=== PATIENT | male | born 1950 | race American Indian/Alaskan Native ===

== ENCOUNTER 2016-12-29 01:04 | Emergency (ER) | payer MEDICARE ==
[2016-12-29 03:01] LABS: Eosinophils % (Auto) 1.6 % (0.0-4.3); Hematocrit 38.3 % (35.5-45.6); Hemoglobin 12.8 gm/dl (11.8-15.2); Mean Corpuscular HGB Conc 33 % (32-34); Mean Corpuscular Hemoglobin 30 pg (28-32); Mean Corpuscular Volume 89 fl (84-94); Platelet Count 364 K/mm3 (140-440); Red Blood Count 4.32 M/mm3 (3.65-5.03); Red Cell Distribution Width 14.2 % (13.2-15.2); White Blood Count 6.4 K/mm3 (4.5-11.0)
[2016-12-29 04:18] LABS: Blood Urea Nitrogen 6 mg/dL (9-20); Calcium 8.9 mg/dL (8.4-10.2); Carbon Dioxide 30 mmol/L (22-30); Chloride 91.1 mmol/L (98-107); Glucose 206 mg/dL (75-100); Potassium 3.1 mmol/L (3.6-5.0); Sodium 137 mmol/L (137-145)
[2016-12-29 04:21] LABS: Anion Gap 19 mmol/L
[2016-12-29] MEDS ORDERED: K-DUR PO ONE (08:08)
--- NOTE | 2016-12-29 08:27 | Emergency Department Report ---
HPI - General Chief Complaint: Psych Time Seen by Provider: 12/29/16 08:08 - HPI HPI: This is a 66-year-old Afro-[place] male who presents to the emergency department from home with the need for a medical clearance so he can go to [facility] for his drug addiction to cocaine. He says he last used to the drug last night. He denies any chest pain, headache, vision change, shortness breath, palpitations, fever or any physical complaints at this time. He has a past medical history of asthma, COPD but not oxygen dependent, diabetes and hypertension. He does not have a primary care doctor. He says that his contacted [facility] and he was told to come through [facility] for medical clearance. ED Past Medical Hx - Past Medical History Previous Medical History?: Yes Hx Hypertension: Yes Hx Congestive Heart Failure: No Hx Diabetes: Yes Hx Asthma: Yes Hx COPD: Yes Hx HIV: No - Surgical History Past Surgical History?: No - Social History Smoking Status: Current Every Day Smoker Substance Use Type: Cocaine, Prescribed - Medications Home Medications: Home Medications Medication Instructions Recorded Confirmed Last Taken Type Nystatin Cream [Mycostatin Cream] 1 applic TP BID #60 tube 01/30/14 01/07/15 Unknown Rx Insulin NPH Hum/Reg Insulin Hm 20 unit SQ BID #1 vial 01/07/15 Unknown Rx [NovoLIN 70-30 100 Unit/ml Vial] ED Review of Systems ROS: Stated complaint: MH EVAL Other details as noted in HPI Comment: All other systems reviewed and negative Constitutional: denies: chills, fever Eyes: denies: eye pain, eye discharge, vision change ENT: denies: ear pain, throat pain Respiratory: denies: cough, shortness of breath, wheezing Cardiovascular: denies: chest pain, palpitations Gastrointestinal: denies: abdominal pain, nausea, diarrhea Genitourinary: denies: urgency, dysuria Musculoskeletal: denies: back pain, joint swelling, arthralgia Skin: denies: rash, lesions Neurological: denies: headache, weakness, paresthesias Psychiatric: denies: anxiety, depression, homicidal thoughts, suicidal thoughts Physical Exam - Physical Exam Vital Signs: Vital Signs 12/29/16 02:04 Temperature 97.9 F Pulse Rate 100 H Respiratory 18 Rate Blood Pressure 136/94 Blood Pressure 136/94 [Left] O2 Sat by Pulse 100 Oximetry Physical Exam: GENERAL: The patient is well-developed well-nourished. HEENT: Normocephalic. Atraumatic. Extraocular motions are intact. Patient has moist mucous membranes. Pupils equal reactive to light bilaterally. NECK: Supple. Trachea is midline. CHEST/LUNGS: Clear to auscultation. There is no respiratory distress noted. HEART/CARDIOVASCULAR: Regular. There is no tachycardia. There is no gallop rub or murmur. ABDOMEN: Abdomen is soft, nontender. Patient has normal bowel sounds. There is no abdominal distention. SKIN: There is no rash. There is no edema. There is no diaphoresis. NEURO: The patient is awake, alert, and oriented. The patient is cooperative. The patient has no focal neurologic deficits. The patient has normal speech. Cranial nerves II through XII grossly intact. MUSCULOSKELETAL: There is no tenderness or deformity. There is no limitation range of motion. There is no evidence of acute injury. ED Course Vital Signs 12/29/16 02:04 Temperature 97.9 F Pulse Rate 100 H Respiratory 18 Rate Blood Pressure 136/94 Blood Pressure 136/94 [Left] O2 Sat by Pulse 100 Oximetry ED Medical Decision Making - Lab Data Result diagrams: 12/29/16 02:46 12/29/16 02:46 - Medical Decision Making Patient is here for medical clearance for inpatient psychiatric treatment of his substance abuse/cocaine history. Patient's vital signs stable throughout his ED course. The majority of the patient's labs are unremarkable. He has some hyperglycemia from 2 this morning but patient does not appear to have any significant complications of any diabetes. No known diabetes history but there is no elevated anion gap and patient does not appear to be in any distress. He does have some hypokalemia with potassium of 3.1 that was replaced with potassium chloride orally. Otherwise now patient appears medically cleared for return to [facility]. The mental health counselor has told me that he has already been accepted and she will arrange for transportation there Critical Care Time: No Critical care attestation.: If time is entered above; I have spent that time in minutes in the direct care of this critically ill patient, excluding procedure time. ED Disposition Clinical Impression: Cocaine abuse, Medical clearance for psychiatric admission Disposition: DISCHARGED TO HOME OR SELFCARE Is pt being admited?: No Condition: Stable Instructions: Cocaine Abuse (ED) Additional Instructions: Please follow-up with a primary care doctor once you are able to do so. Return to the emergency department with any acute distress. Referrals: PRIMARY CARE, [Primary Care Provider] - 3-5 Days Time of Disposition: 10:18
[2016-12-29 08:29] LABS: Urine Drugs of Abuse Note Disclamer
[2016-12-29 08:59] LABS: Bilirubin,Urine Negative (Negative); Blood,Urine Small (Negative); Ketones,Urine Negative (Negative); Leukocyte Esterase,Urine Negative (Negative); Nitrite,Urine Negative (Negative); PH,Urine 6.5 (5.0-7.0); Urobilinogen,Urine 0.2 mg/dL (<2.0)
[2016-12-29 09:09] LABS: Bacteria,Urine 1+ /HPF (Negative)
[2016-12-29 13:56] VITALS: BP 142/92
== END 2016-12-29 13:54 | disposition home or self-care (01) ==
LOC: ED 01:04 → EEVIPCON 01:04 → ED 13:54
DX: F14.10 Cocaine abuse, uncomplicated (principal); I10 Essential (primary) hypertension; E11.9 Type 2 diabetes mellitus without complications; J45.909 Unspecified asthma, uncomplicated; J44.9 Chronic obstructive pulmonary disease, unspecified; F17.200 Nicotine dependence, unspecified, uncomplicated
CPT/HCPCS: 36415; 80048; 80307; 81001; 85025; 99283; G0480; 80320